=== PATIENT | male | born 1970 | race American Indian/Alaskan Native ===

== ENCOUNTER 2017-03-12 16:30 | Emergency (ER) | payer MEDICAID, OTHER ==
[2017-03-12] MEDS ORDERED: Sodium Chloride 0.9% 10 ML Syringe FLUSH PRN (16:41)
[2017-03-12 17:30] LABS: ANION GAP 10.8; CHLORIDE,CL 103 mmol/L (101-111); SODIUM,NA 136 mmol/L (135-145)
[2017-03-12] MEDS ORDERED: Ondansetron 4 MG/2 ML SDV IV ONE (17:30)
[2017-03-12] MEDS ORDERED: Sodium Chloride 0.9% 1,000 ML IV ONE (17:30)
[2017-03-12] MEDS ORDERED: HYDROmorphone 1 MG/ML Syringe IVPUSH ONE (17:31)
[2017-03-12] MEDS ORDERED: Dexamethasone 4 MG/ML SDV IVPUSH ONE (17:31)
[2017-03-12] MEDS ORDERED: Amoxicillin/Clavulanate K 875-125 MG Tab PO ONE (17:32)
[2017-03-12] MEDS ORDERED: Dexamethasone 4 MG Tab PO ONE (17:52)
[2017-03-12] MEDS ORDERED: Ondansetron 4 MG Tab.DIS PO ONE (17:54)
--- NOTE | 2017-03-12 18:55 | EDM.PDOC ---
Scribed by Robina Campbell 03/12/17 2445 for Joss Simon MD ED HPI GENERAL MEDICAL PROBLEM - General Chief Complaint: Neuro Symptoms/Deficits Stated Complaint: POSIBLE STROKE Time Seen by Provider: 03/12/17 16:41 Source of Information: Reports: Patient, RN, RN Notes Reviewed History Limitations: Reports: No Limitations - History of Present Illness INITIAL COMMENTS - FREE TEXT/NARRATIVE: Patient arrives from home with complaint of 2 days of occipital headache, right upper extremity numbness, but not weak. He reports some epigastric pain with nausea and vomiting, sinus drainage and pressure as well as lightheadedness. Denies chest pain, shortness of breath, leg numbness or weakness. Admits to recent methamphetamine binge x3 weeks but quit a few days ago. Location: Reports: Head Quality: Reports: Ache Severity: Severe Improves with: Reports: None Worsens with: Reports: None Associated Symptoms: Reports: No Other Symptoms Treatments PEDIATRICS PHYSICIAN: Reports: EKG, IV/IO Back Pain Score (Numeric/FACES): 6 - Related Data Allergies Allergy/AdvReac Type Severity Reaction Status Date / Time No Known Allergies Allergy Verified 03/12/17 16:49 Home Meds: Home Meds . [No Known Home Meds] 03/12/17 [History] Social & Family History - Tobacco Use Smoking Status *Q: Current Every Day Smoker Years of Tobacco use: 20 Packs/Tins Daily: 1 - Caffeine Use Caffeine Use: Reports: Coffee - Alcohol Use Days Per Week of Alcohol Use: 0 - Recreational Drug Use Recreational Drug Use: Yes Drug Use in Last 12 Months: Yes Recreational Drug Type: Reports: Methamphetamine Other Recreational Drug Type: couple days every two weeks Recreational Drug Use Frequency: Rarely ED ROS GENERAL - Review of Systems Review Of Systems: ROS reveals no pertinent complaints other than HPI. ED EXAM, NEURO - Physical Exam Exam: See Below Exam Limited By: No Limitations General Appearance: Other (malodorous and unkempt.) Eye Exam: Bilateral Eye: Normal Inspection Ears: Normal External Exam, Normal Canal, Hearing Grossly Normal, Normal TMs Nose: Other (sinuses bilateral with purulent drainage and injected turbinates.) Throat/Mouth: Normal Oropharynx, Other (normal except chronic dental decay and missing teeth. ) Head Exam: Atraumatic, Normocephalic Neck: Other (decreased range of motion. Paraspinal muscle tenderness with spsasm.) Respiratory/Chest: No Respiratory Distress, Lungs Clear, Normal Breath Sounds, No Accessory Muscle Use, Chest Non-Tender Cardiovascular: Normal Peripheral Pulses GI/Abdominal: Other (normal except for epigastric tenderness.) (Male) Exam: Deferred Rectal (Males) Exam: Deferred Neurological: Other (normal except generalized mild/partial right upper extremity numbness.) Back Exam: Normal Inspection, Full Range of Motion, NT Extremities: Normal Inspection, Normal Range of Motion, Non-Tender, No Pedal Edema, Normal Capillary Refill Psychiatric: Normal Affect, Normal Mood Skin Exam: Warm, Dry, Intact, Normal Color, No Rash EKG INTERPRETATION EKG Date: 03/12/17 Time: 16:41 Rhythm: Other (sinus rhythm) Rate (Beats/Min): 74 [place]: Normal P-Wave: Present QRS: Normal ST-T: Normal QT: Normal Course - Vital Signs Last Recorded V/S: Last Vital Signs Temp 36.8 C 03/12/17 16:42 Pulse 75 03/12/17 16:42 Resp 18 03/12/17 16:42 BP 153/88 H 03/12/17 16:42 Pulse Ox Orthostatic Blood Pressure [ 132/81 Standing] Orthostatic Blood Pressure [ 136/87 Sitting] Orthostatic Blood Pressure [ 131/79 Supine] - Orders/Labs/Meds Orders: Active Orders 24 hr Category Date Time Status EKG 12 Lead [EKG Documentation Completion] [RC] STAT Care 03/12/17 16:41 Active Peripheral IV Care [RC] . DIRECTED Care 03/12/17 16:42 Active CHLAMYDIA AND GONORRHEA BY TMA Routine Lab 03/12/17 17:55 Received Sodium Chloride 0.9% [Saline Flush] Med 03/12/17 16:41 Active 10 ml FLUSH ASDIRECTED PRN Peripheral IV Insertion Adult [OM.PC] Stat Oth 03/12/17 16:41 Ordered Medication Orders Sodium Chloride (Saline Flush) 10 ml FLUSH ASDIRECTED PRN PRN Reason: Keep Vein Open Last Admin: 03/12/17 17:35 Dose: 10 ml Labs: Laboratory Tests 03/12/17 03/12/17 03/12/17 Range/Units 17:04 17:04 17:04 WBC 7.1 (5.0-10.0) 10^3/uL RBC 4.91 (4.6-6.2) 10^6/uL Hgb 15.2 D (14.0-18.0) g/dL Hct 43.8 (40.0-54.0) % MCV 89.2 (80-100) fL MCH 31.0 (27.0-34.0) pg MCHC 34.7 (33.0-35.0) g/dL Plt Count 221 (150-450) 10^3/uL Neut % (Auto) 55.1 (42.2-75.2) % Lymph % (Auto) 27.6 (20.5-50.1) % [place] % (Auto) 10.8 H (2-8) % Eos % (Auto) 5.9 H (1.0-3.0) % Baso % (Auto) 0.6 (0.0-1.0) % PT 10.7 (9.0-12.0) SEC INR 1.1 (0.9-1.2) APTT 27.7 (22.0-34.0) SEC Sodium 136 (135-145) mmol/L Potassium 3.8 (3.6-5.0) mmol/L Chloride 103 (101-111) mmol/L Carbon Dioxide 26.0 (21.0-31.0) mmol/L Anion Gap 10.8 BUN 19 H (7-18) mg/dL Creatinine 0.7 (0.6-1.3) mg/dL Est Cr Clr Drug Dosing 141.65 mL/min Estimated GFR (MDRD) > 60 BUN/Creatinine Ratio 27.14 Glucose 114 H (74-105) mg/dL Calcium 8.7 (8.4-10.2) mg/dl Total Bilirubin 0.3 (0.2-1.0) mg/dL AST 41 (10-42) IU/L ALT 57 (10-60) IU/L Alkaline Phosphatase 61 (42-121) IU/L Creatine Kinase 88 (26-174) IU/L Troponin I < 0.02 (0.00-0.02) ng/ml Total Protein 7.5 (6.7-8.2) g/dl Albumin 3.7 (3.2-5.5) g/dl Globulin 3.8 Albumin/Globulin Ratio 0.97 Urine Color (YELLOW) Urine Appearance (CLEAR) Urine pH (5.0-9.0) Ur Specific [place] (1.005-1.030) Urine Protein (NEGATIVE) Urine Glucose (UA) (NEGATIVE) Urine Ketones (NEGATIVE) Urine Occult Blood (NEGATIVE) Urine Nitrite (NEGATIVE) Urine Bilirubin (NEGATIVE) Urine Urobilinogen (0.2-1.0) mg/dL Ur Leukocyte Esterase (NEGATIVE) Urine RBC /HPF Urine WBC (0-5/HPF) /HPF Ur Epithelial Cells /HPF Urine Bacteria (0-FEW/HPF) /HPF Urine Mucus /LPF Urine Opiates Screen (NEGATIVE) Ur Oxycodone Screen (NEGATIVE) Urine Methadone Screen (NEGATIVE) Ur Barbiturates Screen (NEGATIVE) U Tricyclic Antidepress (NEGATIVE) Ur Phencyclidine Scrn (NEGATIVE) Ur Amphetamine Screen (NEGATIVE) U Methamphetamines Scrn (NEGATIVE) Urine MDMA Screen (NEGATIVE) U Benzodiazepines Scrn (NEGATIVE) Urine Cocaine Screen (NEGATIVE) U Marijuana (THC) Screen (NEGATIVE) Ethyl Alcohol < 5 mg/dL 03/12/17 03/12/17 Range/Units 17:55 17:55 WBC (5.0-10.0) 10^3/uL RBC (4.6-6.2) 10^6/uL Hgb (14.0-18.0) g/dL Hct (40.0-54.0) % MCV (80-100) fL MCH (27.0-34.0) pg MCHC (33.0-35.0) g/dL Plt Count (150-450) 10^3/uL Neut % (Auto) (42.2-75.2) % Lymph % (Auto) (20.5-50.1) % [place] % (Auto) (2-8) % Eos % (Auto) (1.0-3.0) % Baso % (Auto) (0.0-1.0) % PT (9.0-12.0) SEC INR (0.9-1.2) APTT (22.0-34.0) SEC Sodium (135-145) mmol/L Potassium (3.6-5.0) mmol/L Chloride (101-111) mmol/L Carbon Dioxide (21.0-31.0) mmol/L Anion Gap BUN (7-18) mg/dL Creatinine (0.6-1.3) mg/dL Est Cr Clr Drug Dosing mL/min Estimated GFR (MDRD) BUN/Creatinine Ratio Glucose (74-105) mg/dL Calcium (8.4-10.2) mg/dl Total Bilirubin (0.2-1.0) mg/dL AST (10-42) IU/L ALT (10-60) IU/L Alkaline Phosphatase (42-121) IU/L Creatine Kinase (26-174) IU/L Troponin I (0.00-0.02) ng/ml Total Protein (6.7-8.2) g/dl Albumin (3.2-5.5) g/dl Globulin Albumin/Globulin Ratio Urine Color Yellow (YELLOW) Urine Appearance Clear (CLEAR) Urine pH 5.5 (5.0-9.0) Ur Specific [place] 1.020 (1.005-1.030) Urine Protein Negative (NEGATIVE) Urine Glucose (UA) Negative (NEGATIVE) Urine Ketones Negative (NEGATIVE) Urine Occult Blood Negative (NEGATIVE) Urine Nitrite Negative (NEGATIVE) Urine Bilirubin Negative (NEGATIVE) Urine Urobilinogen 0.2 (0.2-1.0) mg/dL Ur Leukocyte Esterase Negative (NEGATIVE) Urine RBC 0-5 /HPF Urine WBC 30-40 H (0-5/HPF) /HPF Ur Epithelial Cells Moderate H /HPF Urine Bacteria Moderate H (0-FEW/HPF) /HPF Urine Mucus Moderate H /LPF Urine Opiates Screen Negative (NEGATIVE) Ur Oxycodone Screen Negative (NEGATIVE) Urine Methadone Screen Negative (NEGATIVE) Ur Barbiturates Screen Negative (NEGATIVE) U Tricyclic Antidepress Negative (NEGATIVE) Ur Phencyclidine Scrn Negative (NEGATIVE) Ur Amphetamine Screen Positive H (NEGATIVE) U Methamphetamines Scrn Positive H (NEGATIVE) Urine MDMA Screen Negative (NEGATIVE) U Benzodiazepines Scrn Negative (NEGATIVE) Urine Cocaine Screen Negative (NEGATIVE) U Marijuana (THC) Screen Positive H (NEGATIVE) Ethyl Alcohol mg/dL Meds: Medications Generic Name Dose Route Start Last Admin Trade Name Freq PRN Reason Stop Dose Admin Sodium Chloride 10 ml 03/12/17 16:41 03/12/17 17:35 Saline Flush FLUSH 10 ml ASDIRECTED PRN Administration Keep Vein Open Discontinued Medications Generic Name Dose Route Start Last Admin Trade Name Freq PRN Reason Stop Dose Admin Amoxicillin/Clavulanate Potassium 1 tab 03/12/17 17:32 03/12/17 18:04 Augmentin 875 Mg/125 Mg PO 03/12/17 17:33 1 tab ONETIME ONE Administration Dexamethasone 20 mg 03/12/17 17:31 03/12/17 18:05 Dexamethasone IVPUSH 03/12/17 17:32 Not Given ONETIME ONE Dexamethasone 12 mg 03/12/17 17:52 03/12/17 18:07 Dexamethasone PO 03/12/17 17:53 12 mg ONETIME ONE Administration Hydromorphone HCl 1 mg 03/12/17 17:31 03/12/17 18:05 Dilaudid IVPUSH 03/12/17 17:32 Not Given ONETIME ONE Sodium Chloride 1,000 mls @ 999 mls/hr 03/12/17 17:30 03/12/17 18:05 Normal Saline IV 03/12/17 18:30 Not Given .BOLUS ONE Ondansetron HCl 4 mg 03/12/17 17:30 03/12/17 18:04 Zofran IV 03/12/17 17:31 Not Given ONETIME ONE Ondansetron HCl 4 mg 03/12/17 17:54 03/12/17 18:04 Zofran Odt PO 03/12/17 17:55 4 mg ONETIME ONE Administration - Radiology Interpretation Free Text/Narrative:: Head CT: Multifocal chronic sinus disease. No sign of acute hemorrhagic or ischemic stroke. See Rad report. Departure - Departure Time of Disposition: 17:54 Disposition: Home, Self-Care 01 Condition: Good Clinical Impression: Right cervical radiculopathy, Occipital headache Nausea and vomiting Qualifiers: Vomiting type: unspecified Vomiting Intractability: non-intractable Qualified Code(s): R11.2 - Nausea with vomiting, unspecified Sinusitis Qualifiers: Sinusitis location: pansinusitis Chronicity: acute Recurrence: non-recurrent Qualified Code(s): J01.40 - Acute pansinusitis, unspecified - Discharge Information Instructions: General Headache Without Cause, Sinusitis, Adult, [id number], Nausea, Adult, [id number], Cervical Radiculopathy, [id number] Forms: ED Department Discharge Additional Instructions: RX: Cyclobenzaprine 10mg. RX: Decadron 4mg. RX: Augmentin 875mg. Establish with a primary for follow up care next week. - My Orders Last 24 Hours: My Active Orders 03/12/17 16:41 EKG 12 Lead [EKG Documentation Completion] [RC] STAT Sodium Chloride 0.9% [Saline Flush] 10 ml FLUSH ASDIRECTED PRN Peripheral IV Insertion Adult [OM.PC] Stat 03/12/17 16:42 Peripheral IV Care [RC] . DIRECTED 03/12/17 17:55 CHLAMYDIA AND GONORRHEA BY TMA Routine - Assessment/Plan Last 24 Hours: My Active Orders 03/12/17 16:41 EKG 12 Lead [EKG Documentation Completion] [RC] STAT Sodium Chloride 0.9% [Saline Flush] 10 ml FLUSH ASDIRECTED PRN Peripheral IV Insertion Adult [OM.PC] Stat 03/12/17 16:42 Peripheral IV Care [RC] . DIRECTED 03/12/17 17:55 CHLAMYDIA AND GONORRHEA BY TMA Routine I have read and agree with the documentation that has been completed regarding this visit. By signing this record, I attest that the documentation was completed in my physical presence and is an accurate record of the encounter.
--- NOTE | 2017-03-16 17:31 | EKG ---
03/12/2017 - MARIEL LIRIANO - EKG per my reading shows sinus rhythm at the rate of [address] [facility] /[id number]
== END 2017-03-12 18:42 | disposition home or self-care (01) ==
LOC: DL.ED 16:30
DX: R51 Headache (principal); J01.40 Acute pansinusitis, unspecified; M54.12 Radiculopathy, cervical region; R11.2 Nausea with vomiting, unspecified; F17.210 Nicotine dependence, cigarettes, uncomplicated
CPT/HCPCS: 36415; 70450; 80053; 80305; 81001; 82550; 84484; 85025; 85610; 85730; 87491; 87591; 93005; 99284; A9270; G0480; J7050; J8540; 93010